=== PATIENT | female | born 1995 | race Caucasian/White ===

== ENCOUNTER 2021-04-10 08:24 | Emergency (ER) | payer SELFPAY ==
[2021-04-10] MEDS ORDERED: Acetaminophen 500 MG Tab PO ONE (09:34)
[2021-04-10 09:36] LABS: RESPIRATORY SYNCYTIAL VIR NAA NEGATIVE (NEGATIVE)
[2021-04-10 09:41] LABS: CORONAVIRUS COVID-19 NAA POSITIVE (NEGATIVE)
[2021-04-10 10:35] LABS: ANION GAP 15.4 mEq/L (7-13); CHLORIDE,CL 104 mmol/L (98-107); SODIUM,NA 140 mmol/L (136-145)
[2021-04-10] MEDS ORDERED: Dexamethasone 4 MG/ML SDV IM ONE (10:46)
== END 2021-04-10 11:04 | disposition home or self-care (01) ==
LOC: DL.ED 08:24
DX: U07.1 COVID-19 (principal); R09.1 Pleurisy; E66.9 Obesity, unspecified; Z68.44 Body mass index [BMI] 60.0-69.9, adult; Z88.0 Allergy status to penicillin
CPT/HCPCS: 0241U; 36415; 71045; 80053; 82150; 83605; 83690; 83735; 84484; 85025; 85379; 96372; 99285; A9270; J1100

== ENCOUNTER 2025-01-19 18:57 | Emergency (ER) | payer OTHER ==
[2025-01-19 19:20] LABS: APPEARANCE,URINE CLEAR (CLEAR); GLUCOSE,URINE NEGATIVE (NEGATIVE); OCCULT BLOOD,URINE TRACE-INTACT (NEGATIVE)
[2025-01-19 19:33] LABS: BASOPHILS PERCENT AUTO 0.3 % (0.0-1.0); EOSINOPHILS PERCENT AUTO 0.8 % (1.0-3.0); LYMPHOCYTES PERCENT AUTO 15.3 % (20.5-50.1); MONOCYTES PERCENT AUTO 6.9 % (2-8); NEUTROPHILS PERCENT AUTO 76.7 % (42.2-75.2); PLATELET COUNT,PLT 452 10^3/uL (150-450); RED BLOOD CELL COUNT 4.38 10^6/uL (4.2-5.4); WHITE BLOOD CELL COUNT,WBC 10.5 10^3/uL (5.0-10.0)
[2025-01-19 19:41] LABS: SQUAMOUS EPITHELIAL CELLS,UR FEW /HPF (NOT SEEN)
[2025-01-19 19:53] LABS: A/G RATIO 1.2; ALANINE AMINOTRANSFERASE,ALT 24.0 U/L (14-59); ASPARTATE AMNIOTRANSFERASE,AST 12.0 U/L (15-37); BILIRUBIN TOTAL 0.5 mg/dL (0.2-1.0); BLOOD UREA NITROGEN,BUN 9.0 mg/dL (7-18); CARBON DIOXIDE,CO2 25.0 mmol/L (21-32); CHLORIDE,CL 104.0 mmol/L (98-107); CREATININE 0.73 mg/dL (0.55-1.02); EST CRCL DRUG DOSING (CG) 104.53 mL/min; ESTIMATED GFR 113.0 mL/min (>=60); GLUCOSE RANDOM 110.0 mg/dL (70-99); POTASSIUM,K 4.1 mmol/L (3.5-5.1); PROTEIN TOTAL,TP 7.7 g/dL (6.4-8.2); SODIUM,NA 140.0 mmol/L (136-145)
[2025-01-19] MEDS: fentaNYL 100 MCG/2 ML SDV IVPUSH ONE ×4 (19:59→22:57)
[2025-01-19] MEDS: Ondansetron 4 MG/2 ML SDV IVPUSH ONE (19:59)
[2025-01-19] MEDS: Iopamidol 612 MG/ML 100 ML Bottle IVPUSH ONE (21:50)
[2025-01-20] MEDS: fentaNYL 100 MCG/2 ML SDV IVPUSH ONE (01:16)
[2025-01-20 02:36] LABS: LACTIC ACID 1.0 mmol/L (0.4-2.0)
== END 2025-01-20 02:29 ==
LOC: DL.ED 18:57
DX: K46.9 Unspecified abdominal hernia without obstruction or gangrene (principal); Z88.0 Allergy status to penicillin; Z79.899 Other long term (current) drug therapy; Z90.49 Acquired absence of other specified parts of digestive tract
CPT/HCPCS: 36415; 74176; 74177; 80053; 81001; 81025; 83605; 83690; 85025; 96374; 96375; 96376; 99285-25; J2405; J3010; J7030; Q9967